=== PATIENT | female | born 1960 | race Caucasian/White ===

== ENCOUNTER 2016-09-07 21:34 | Emergency (ER) | payer OTHER ==
[~2016-09-07] VITALS: Ht 157.5 cm; Wt 79.4 kg
[2016-09-07 21:43] VITALS: BP 115/74
== END 2016-09-08 01:57 | disposition left against medical advice (07) ==
LOC: ER 21:37
DX: S81.812A Laceration without foreign body, left lower leg, initial encounter (principal); Z53.21 Procedure and treatment not carried out due to patient leaving prior to being seen by health care provider; X58.XXXA Exposure to other specified factors, initial encounter; Y93.9 Activity, unspecified; Y99.9 Unspecified external cause status; Y92.9 Unspecified place or not applicable
CPT/HCPCS: 73590